=== PATIENT | male | born 1985 | race Caucasian/White ===

== ENCOUNTER 2020-10-04 10:59 | Inpatient (IN) | payer SELFPAY ==
[~2020-10-04] VITALS: Ht 177.8 cm; Wt 85.6 kg
[2020-10-04 11:51] LABS: BASOPHILS ABSOLUTE AUTO 0.06 K/mm3 (0.00-0.23); BASOPHILS PERCENT AUTO 0 % (0-2); EOSINOPHILS PERCENT AUTO 0 % (0-6); Hematocrit 44.3 % (37.0-53.0); Hemoglobin 15.3 g/dL (13.5-17.5); IMMATURE GRAN ABSOLUTE AUTO 0.22 K/mm3 (0.00-0.10); IMMATURE GRAN PERCENT AUTO 1 % (0-1); LYMPHOCYTES ABSOLUTE AUTO 0.95 K/mm3 (0.84-5.20); LYMPHOCYTES PERCENT AUTO 4 % (21-46); MONOCYTES ABSOLUTE AUTO 2.98 K/mm3 (0.16-1.47); MONOCYTES PERCENT AUTO 12 % (4-13); Mean Corpuscular HGB 30.7 pg (26.0-34.0); Mean Corpuscular HGB Conc 34.5 g/dL (31.5-36.5); Mean Corpuscular Volume 89 fL (80-100); Mean Platelet Volume 10.6 fL (9.1-12.4); NEUTROPHILS ABSOLUTE AUTO 20.99 K/mm3 (1.96-9.15); NEUTROPHILS PERCENT AUTO 83 % (41-73); Platelet Count 422 K/mm3 (150-400); RDW Coefficient Variation 12.8 % (11.7-14.2); RDW Standard Deviation 41.8 fL (35.1-46.3); Red Blood Cell Count 4.98 M/mm3 (4.30-5.90)
[2020-10-04 12:12] LABS: Alanine Aminotransfer (ALT/SGP 40 U/L (12-78); Albumin, Blood 2.8 g/dL (3.4-5.0); Albumin/Globulin Ratio 0.5 (0.8-1.8); Alk Phos 133 U/L (50-136); Anion Gap 8 mmol/L (6-16); Aspartate Aminotrans (AST/SGOT 13 U/L (12-37); Bilirubin, Total 1.1 mg/dL (0.1-1.0); Blood Urea Nitrogen 13 mg/dL (8-24); Bun/Creatinine Ratio 10.1 (12.0-20.0); CO2, Blood 21 mmol/L (21-32); Calcium, Blood 8.9 mg/dL (8.5-10.1); Chloride, Blood 104 mmol/L (98-108); Creatinine, Blood 1.29 mg/dL (0.60-1.20); Globulin, Blood 5.1 g/dL (2.2-4.0); Glomerular Filtration Rate >60 (60-); Glucose, Blood 116 mg/dL (70-99); Sodium, Blood 133 mmol/L (136-145); Total Protein, Blood 7.9 g/dL (6.4-8.2)
[2020-10-04 12:15] LABS: Source, Urine Clean Catch
[2020-10-04 12:25] LABS: Appearance, Urine Clear (Clear); Blood, Urine 5+ (Neg); Color, Urine Amber (P-Yellow); Glucose Qualitative, Urine Neg (Neg); Ketones, Urine 3+ (Neg); Leukocyte Esterase, Urine 1+ (Neg); Nitrite, Urine Pos (Neg); Protein, Urine 3+ (Neg); Specific Gravity, Urine 1.025 (1.003-1.022); Urobilinogen, Urine 2+ (Normal)
[2020-10-04 12:43] LABS: U Amphetamine Screen Not Detected; U Barbituate Screen Not Detected; U Benzodiazapine Screen Not Detected; U Buprenorphine Screen Not Detected; U Cannabinoids Screen Not Detected; U Cocaine Screen Not Detected; U Methadone Screen Not Detected; U Methamphetamine Screen Not Detected; U Opiates Screen Not Detected; U Oxycodone Screen Not Detected; U Phencyclidine Screen Not Detected; U Propoxyphene Screen Not Detected
[2020-10-04 12:44] LABS: Bilirubin, Urine 2+ (Neg)
[2020-10-04 12:46] LABS: Bacteria Mod /hpf; Mucus Mod (0-Heavy); Squamous Epithelial Cells Rare /hpf (Few)
[2020-10-04 13:10] LABS: SARS-Cov-2 (COVID-19) PCR, MMC NEGATIVE (NEGATIVE)
--- NOTE | 2020-10-04 19:47 | NUR ---
PT ADMITTED TO ROOM 357 AT 1645- STRETCHER TO BED, PT AMBULATES WITHOUT DIFFICULTY. IVF INFUSING AND ABX COMPLETING FROM ED. SATS 95% ROOM AIR, RESP SHALLOW, EVEN UNLABORED. C/O PAIN LL RIBS WITH DEEP INSP. PLACED TELE, SR 92. DR ZELAYA AT BEDSIDE ASSESSING AND GOING OVER PLAN FOR US GUIDED THOROCENTESIS. PT STATES UNDERSTANDING. HELD LOVENOX FOR PROCEDURE. PT ORIENTED TO ROOM SETUP AND SAFETY AND CALL LIGHT.
--- NOTE | 2020-10-04 19:50 | NUR ---
SUMM- PT TOLERATED GENERAL DINNER. VERY SLEEPY FROM LACK OF REST RELATED TO BREATHING DIFFICULTY AND PAIN WITH DEEP INSP. SATS 95% ROOM AIR, LUNGS DIM IN BASES. IVF INFUSING. PT ABLE TO AMBULATE TO BATHROOM INDEPENDANT STEADY ON FEET. HOB 75 DEGREES, PILLOWS UNDER ARMS, NOW ATTEMPTING REST. MEDICATED WITH TORADOL FOR COMFORT- REPORT TO ERIC LARA RN.
[2020-10-05 04:55] LABS: Hematocrit 40.7 % (37.0-53.0); Hemoglobin 13.9 g/dL (13.5-17.5); Mean Corpuscular HGB 30.6 pg (26.0-34.0); Mean Corpuscular HGB Conc 34.2 g/dL (31.5-36.5); Mean Corpuscular Volume 90 fL (80-100); Mean Platelet Volume 10.7 fL (9.1-12.4); Platelet Count 402 K/mm3 (150-400); RDW Coefficient Variation 13.1 % (11.7-14.2); RDW Standard Deviation 43.2 fL (35.1-46.3); Red Blood Cell Count 4.54 M/mm3 (4.30-5.90)
[2020-10-05 05:10] LABS: International Normalized Ratio 1.11; Prothrombin Time Results 11.9 Sec (9.7-11.5)
[2020-10-05 05:19] LABS: Bun/Creatinine Ratio 10.8 (12.0-20.0); Calcium, Blood 8.5 mg/dL (8.5-10.1); Creatinine, Blood 1.39 mg/dL (0.60-1.20); Potassium, Blood 3.9 mmol/L (3.5-5.5)
--- NOTE | 2020-10-05 06:08 | NUR ---
SHIFT SUMMARY PT HAS BEEN ABLE TO GET SOME REST THIS SHIFT AND REPORTS THAT HE HAS GOTTEN MORE REST TONIGHT THEN HE HAS HAD IN A WHILE. PT CONTINUES TO BE ON RA AND MAINTAINING SATS IN THE 90'S. LUNGS ARE DIMINISHED T/O, LEFT LOWER MORE SO DIMINISHED. PT RECEIVED SCHEDULED ANTIBIOTICS T/O SHIFT, IV VANCO AND ZOSYN. LOW GRADE FEVER THIS SHIFT. PT HAS PRODUCTIVE HARSH HACKING COUGH. PT MEDICATED FOR COUGH AND PLEURITC PAIN. PT ONLY ABLE TO SLEEP WITH HOB ELEVATED AND STILL STRUGGLING TO TAKE DEEP BREATHS D/T PAIN. PLAN IS FOR THORANCENTESIS TODAY AND POSSIBLE CHEST TUBE PLACEMENT, PT HAS BEEN NPO SINCE MIDNIGHT. TWO IV' ARE IN PLACE. PT INDEPENDENT IN THE ROOM. WBC DOWN THIS AM. PT AND INR LABS HAVE BEEN DRAWN FOR UPCOMING PROCEDURE. NO ACUTE CHANGES TO REPORT OVERNIGHT. BED IN LOWEST POSITION, CALL LIGHT WITHIN REACH.
--- NOTE | 2020-10-05 11:22 | NUR ---
Upon receiving an admit referral for spiritual care, I visit patient. Patient tells me about the struggle he has been having with his lungs and what the plan is going forward. He voices his concerns if things don't turn around. He tells me about his solid support system and his belief in God that strengthen him. I normalize patient's experience and provide anxiety containment, therapeutic listening and prayer. Patient responds well and shows signs of reduced stress. I will continue to remain available to patient and family.
[2020-10-05 15:38] LABS: Vancomycin, Trough 24.8 ug/mL (5.0-10.0)
--- NOTE | 2020-10-05 18:43 | NUR ---
SHIFT SUMMARY: NO ACUTE EVENTS TO REPORT THIS SHIFT. PT A&O; CALM AND COOPERATIVE WITH CARE; INDEPENDENT IN ROOM. MEDICATED FOR PLEURITIC PAIN PER EMAR c GOOD EFFECT. US GUIDED THORACENTESIS PLANNED FOR THIS SHIFT-CANCELLED R/T NO IDENTIFIABLE COLLECTION OF FLUID TO ASPIRATE. IV ABX CONTINUING. WCTM.
--- NOTE | 2020-10-06 04:22 | NUR ---
SHIFT SUMMARY ADMITTED FOR NECROTYZING LLL PNEUMONIA. FULL CODE. IV ANTIBIOTICS ARE SCHEDULED. CHEST XRAY AND CT SCAN ARE PLANNED. TELEMETRY: NSR @ 75 BPM. SPUTUM SAMPLE NEEDED. THORACENTESIS CANCELLED THERE WERE NO APPROPRIATE SITES TO DRAIN. DR BARTHOLOMEW IS CONSULT. LOW GRADE FEVERS NOTED. HE IS A&O X4, INDEPENDENT. AWAITING MORNING LABS, ELEVATED WBC COUNTS HAVE BEEN DOWNTRENDING.
[2020-10-06 05:11] LABS: BASOPHILS ABSOLUTE AUTO 0.08 K/mm3 (0.00-0.23); BASOPHILS PERCENT AUTO 1 % (0-2); EOSINOPHILS ABSOLUTE AUTO 0.06 K/mm3 (0.00-0.68); EOSINOPHILS PERCENT AUTO 0 % (0-6); Hematocrit 39.5 % (37.0-53.0); Hemoglobin 13.2 g/dL (13.5-17.5); IMMATURE GRAN ABSOLUTE AUTO 0.12 K/mm3 (0.00-0.10); IMMATURE GRAN PERCENT AUTO 1 % (0-1); LYMPHOCYTES ABSOLUTE AUTO 1.37 K/mm3 (0.84-5.20); LYMPHOCYTES PERCENT AUTO 8 % (21-46); MONOCYTES ABSOLUTE AUTO 1.74 K/mm3 (0.16-1.47); MONOCYTES PERCENT AUTO 11 % (4-13); Mean Corpuscular HGB Conc 33.4 g/dL (31.5-36.5); Mean Corpuscular Volume 90 fL (80-100); Mean Platelet Volume 10.7 fL (9.1-12.4); NEUTROPHILS ABSOLUTE AUTO 13.19 K/mm3 (1.96-9.15); NEUTROPHILS PERCENT AUTO 80 % (41-73); Platelet Count 455 K/mm3 (150-400); RDW Coefficient Variation 13.4 % (11.7-14.2); RDW Standard Deviation 44.3 fL (35.1-46.3); White Blood Cell Count 16.56 K/mm3 (4.00-11.30)
[2020-10-06 05:38] LABS: Albumin, Blood 2.2 g/dL (3.4-5.0); Anion Gap 9 mmol/L (6-16); Blood Urea Nitrogen 16 mg/dL (8-24); Bun/Creatinine Ratio 7.4 (12.0-20.0); CO2, Blood 24 mmol/L (21-32); Calcium, Blood 8.4 mg/dL (8.5-10.1); Chloride, Blood 108 mmol/L (98-108); Creatinine, Blood 2.15 mg/dL (0.60-1.20); Glomerular Filtration Rate 35 (60-); Glucose, Blood 109 mg/dL (70-99); Phosphorus, Blood 3.1 mg/dL (2.5-4.9); Potassium, Blood 3.7 mmol/L (3.5-5.5); Sodium, Blood 141 mmol/L (136-145)
[2020-10-06 07:15] LABS: HIV SCREEN 4TH GENERATION WRFX Non Reactive (Non Reactive)
[2020-10-06 11:55] LABS: Automated BF RBC Count 0.004 M/mm3 (0-0); Automated BF WBC Count 1.527 K/mm3 (0-999); Body Fluid WBC Count 1527 /mm3 (0-999); RBC Count, Body Fluid 4000 /mm3 (0-0)
[2020-10-06 12:21] LABS: Glucose, Body Fluid 22 mg/dL; Lactate Dehydrogenase, Body Fl 1086 U/L; Protein, Body Fluid 5.2 g/dL
[2020-10-06 12:44] LABS: Total Cell Count, Body Fluid 100
[2020-10-06 12:45] LABS: Appearance, Body Fluid Cloudy (Clear); Color, Body Fluid Yellow (None-Yellow)
[2020-10-06 12:53] LABS: pH, Body Fluid 7.3
--- NOTE | 2020-10-06 19:20 | NUR ---
ASSUMED CARE RECEIVED REPORT FROM ANT CORNELIUS. PT RESTING, IN NAD. NO ACUTE NEEDS ASSESSED AT THIS TIME. CALL LIGHT, POSSESSIONS IN REACH.
--- NOTE | 2020-10-06 19:27 | NUR ---
SHIFT SUMMARY: PT A&O; CALM AND COOPERATIVE WITH CARE; INDEPENDENT IN ROOM. LEFT LUNG PNA; FLUID COLLECTION; DRAIN PLACED THIS SHIFT; PT TOLERATED WELL; DRAINING YELLOW STRINGY FLUID. FLUIDS & IV ABX CONTINUING. REPORT GIVEN TO ONCOMING RN.
[2020-10-07 05:08] LABS: BASOPHILS ABSOLUTE AUTO 0.11 K/mm3 (0.00-0.23); BASOPHILS PERCENT AUTO 1 % (0-2); EOSINOPHILS ABSOLUTE AUTO 0.07 K/mm3 (0.00-0.68); EOSINOPHILS PERCENT AUTO 1 % (0-6); Hematocrit 36.7 % (37.0-53.0); Hemoglobin 12.6 g/dL (13.5-17.5); IMMATURE GRAN PERCENT AUTO 1 % (0-1); LYMPHOCYTES ABSOLUTE AUTO 1.17 K/mm3 (0.84-5.20); LYMPHOCYTES PERCENT AUTO 8 % (21-46); MONOCYTES ABSOLUTE AUTO 1.57 K/mm3 (0.16-1.47); MONOCYTES PERCENT AUTO 11 % (4-13); Mean Corpuscular HGB 30.3 pg (26.0-34.0); Mean Corpuscular HGB Conc 34.3 g/dL (31.5-36.5); Mean Corpuscular Volume 88 fL (80-100); Mean Platelet Volume 10.6 fL (9.1-12.4); NEUTROPHILS ABSOLUTE AUTO 11.43 K/mm3 (1.96-9.15); NEUTROPHILS PERCENT AUTO 79 % (41-73); Platelet Count 481 K/mm3 (150-400); RDW Coefficient Variation 13.5 % (11.7-14.2); RDW Standard Deviation 43.9 fL (35.1-46.3); Red Blood Cell Count 4.16 M/mm3 (4.30-5.90); White Blood Cell Count 14.45 K/mm3 (4.00-11.30)
[2020-10-07 05:23] LABS: Anion Gap 8 mmol/L (6-16); Blood Urea Nitrogen 12 mg/dL (8-24); Bun/Creatinine Ratio 5.8 (12.0-20.0); CO2, Blood 23 mmol/L (21-32); Calcium, Blood 8.4 mg/dL (8.5-10.1); Chloride, Blood 108 mmol/L (98-108); Creatinine, Blood 2.08 mg/dL (0.60-1.20); Glomerular Filtration Rate 36 (60-); Glucose, Blood 99 mg/dL (70-99); Phosphorus, Blood 3.1 mg/dL (2.5-4.9); Potassium, Blood 3.7 mmol/L (3.5-5.5); Sodium, Blood 139 mmol/L (136-145)
--- NOTE | 2020-10-07 06:51 | NUR ---
MANAGER QUALITY SUMMARY PT RESTING IN BED, IN NAD. HAS BEEN SLEEPING ON AND OFF T/O NIGHT. INDEPENDENT IN ROOM. VS REVIEWED, WNL. PLEUREX DRAINING TABBY-YELLOW MUCUSY DRAINAGE, TUBING FREE OF KINKS; PT REPORTS MINIMAL DISCOMFORT TO SITE. NO ACUTE CHANGES TO REPORT OVERNIGHT. DENIES NEEDS AT THIS TIME. IVF AND IV ABX INFUSING ORDERED. WILL REPORT OFF TO ONCOMING RN.
--- NOTE | 2020-10-07 14:06 | NUR ---
Patient is sitting up inbed and alert. Patient tells me about his improvement (breathing deeper, increased strength and energy and much more productive cough). He also talks about his emotional status brightening and feeling like he is over the worst of it. He continue to share about his solid support system and how grateful he is for them. I provide therapeutic listening and companionship. Patient responds well and shows signs of an elevated mood.
--- NOTE | 2020-10-07 17:15 | NUR ---
SHIFT SUMMARY PT AxOx4. PLEASANT AND COOPERATIVE WITH CARE. PT REPORTED PLEURITIC PAIN AND COUGHING THIS SHIFT. MEDICATED PER EMAR WITH REPORTED RELIEF. PT INDEPENDENT IN THE ROOM. L SIDE PLEURX TUBE DRAINING SEROUS FLUID. CURRENT PLAN IS TO CONTINUE RECEIVING IV ABX AND GET CT OF CHEST IN THE AM. IV FLUIDS DC'D PER ORDER. PT CURRENTLY RESING IN BED WITH CALL LIGHT IN REACH. VITALS REVIEWED. PT DENIES ANY NEEDS AT THIS TIME.
--- NOTE | 2020-10-08 07:30 | NUR ---
SHIFT SUMMARY PT IS A 34 Y/O MALE, ADMITTED FOR NECROTIZING PNA. HE IS A&O X 4, INDEPENDENT IN THE ROOM. PT REPORTED LOWER BACK PAIN, WHICH HE WAS MEDICATED FOR WITH TYLENOL, AND A COUGH, MEDICATED WITH TESSALON PERLES. NO C/O NAUSEA OR ACUTE SOB. PLEUREX DRAIN IN PLACE, DRAINING A SMALL AMOUNT OF YELLOW AND PINK DRAINAGE. VITAL SIGNS STABLE. TELE SHOWED NSR IN THE 80S. NO ACUTE CHANGES IN PT CONDITION NOTED DURING THE NIGHT. REPORT GIVEN TO ONCOMING RN.
[2020-10-08 08:28] LABS: Hematocrit 35.4 % (37.0-53.0); Hemoglobin 12.1 g/dL (13.5-17.5); Mean Corpuscular HGB 30.3 pg (26.0-34.0); Mean Corpuscular HGB Conc 34.2 g/dL (31.5-36.5); Mean Corpuscular Volume 89 fL (80-100); Mean Platelet Volume 10.5 fL (9.1-12.4); Platelet Count 468 K/mm3 (150-400); RDW Coefficient Variation 13.6 % (11.7-14.2); RDW Standard Deviation 44.7 fL (35.1-46.3); White Blood Cell Count 16.06 K/mm3 (4.00-11.30)
[2020-10-08 08:42] LABS: Albumin, Blood 1.9 g/dL (3.4-5.0); Anion Gap 4 mmol/L (6-16); Blood Urea Nitrogen 9 mg/dL (8-24); Bun/Creatinine Ratio 4.7 (12.0-20.0); CO2, Blood 27 mmol/L (21-32); Calcium, Blood 8.1 mg/dL (8.5-10.1); Chloride, Blood 110 mmol/L (98-108); Creatinine, Blood 1.93 mg/dL (0.60-1.20); Glomerular Filtration Rate 40 (60-); Glucose, Blood 104 mg/dL (70-99); Phosphorus, Blood 2.2 mg/dL (2.5-4.9); Potassium, Blood 3.5 mmol/L (3.5-5.5); Sodium, Blood 141 mmol/L (136-145)
--- NOTE | 2020-10-08 09:10 | NUR ---
PT PLEASANT COOP A/O TALKATIVE. STATES PAIN IN BACK. MED PER EMAR. PIGTAIL CATHETER DRAIN IN LEFT SIDE CHEST WALL. DRAINING SCANT YELLOW FLUID. OP SITE CDI. COVERED WITH TRANSPARENT DRESSING. NO REDNESS NOTED. LUNGS CLER EXCEPT LOW RT IS LITE CRACKLES. RESP EASY, UNLABORED. ON R/A. BT X4 LAST BM YEST PER PT. VIODS INDEPENDANT TO BATHROOM. BED IN LOW POSITION, CALL LITE IN REACH, CALLS APPROP
[2020-10-08 11:14] LABS: Total Protein, Blood 6.6 g/dL (6.4-8.2)
--- NOTE | 2020-10-08 13:00 | NUR ---
Patient tells me that he is improving and that he has one more procedure today and following that there will be discussion about his transition home. Patient is staying positive and is missing his family [place]. I provide therapeutic listening and companionship. Patient responds well and shows signs of an elevated mood.
[2020-10-08 15:45] LABS: Appearance, Body Fluid Clear (Clear); Color, Body Fluid Yellow (None-Yellow)
[2020-10-08 15:50] LABS: Automated BF WBC Count 0.301 K/mm3 (0-999); Body Fluid WBC Count 301 /mm3 (0-999)
[2020-10-08 16:10] LABS: Glucose, Body Fluid 58 mg/dL; Protein, Body Fluid 4.8 g/dL
[2020-10-08 16:32] LABS: Lactate Dehydrogenase, Body Fl 1204 U/L
[2020-10-08 16:34] LABS: RBC Count, Body Fluid 996 /mm3 (0-0)
[2020-10-08 16:40] LABS: Total Cell Count, Body Fluid 100
[2020-10-08 17:48] LABS: pH, Body Fluid 7.3
--- NOTE | 2020-10-08 18:46 | NUR ---
PT QUITE PLEASANT TODAY. PAIN MANAGED WITH [facility]AIL MEDS. DR PETERSEN REMOVED CHEST PLEUREX DRAIN THIS STEVE. DRESSING IN PLACE BY DR PETERSEN. PT HAD CAMERON PERFORMED THIS AFT. PT STATES ABOUT 100 CC REMOVED. BANDAIDE IN PLACE ON L BACK OF CHEST. CDI. DR PETERSEN STATES EXPECTS DISCHARGE TOMORROW. NO NEW CONCERNS NOTED. BED IN LOW POSITION CALL LITE IN REACH, CALLS APPROP.
[2020-10-09 04:25] LABS: Hematocrit 35.2 % (37.0-53.0); Mean Corpuscular HGB 29.9 pg (26.0-34.0); Mean Corpuscular HGB Conc 34.1 g/dL (31.5-36.5); Mean Corpuscular Volume 88 fL (80-100); Mean Platelet Volume 10.4 fL (9.1-12.4); Platelet Count 478 K/mm3 (150-400); RDW Coefficient Variation 13.7 % (11.7-14.2); RDW Standard Deviation 44.2 fL (35.1-46.3); Red Blood Cell Count 4.02 M/mm3 (4.30-5.90); White Blood Cell Count 16.12 K/mm3 (4.00-11.30)
[2020-10-09 04:43] LABS: Albumin, Blood 1.8 g/dL (3.4-5.0); Anion Gap 7 mmol/L (6-16); Blood Urea Nitrogen 10 mg/dL (8-24); CO2, Blood 27 mmol/L (21-32); Chloride, Blood 106 mmol/L (98-108); Creatinine, Blood 2.02 mg/dL (0.60-1.20); Glomerular Filtration Rate 38 (60-); Glucose, Blood 126 mg/dL (70-99); Phosphorus, Blood 2.4 mg/dL (2.5-4.9); Potassium, Blood 3.3 mmol/L (3.5-5.5); Sodium, Blood 140 mmol/L (136-145)
--- NOTE | 2020-10-09 06:28 | NUR ---
SHIFT SUMMARY PT IS A 34 Y/O MALE, ADMITTED FOR NECROTIZING PNA. HE IS A&O X 4, INDEPENDENT IN THE ROOM. HE WAS MEDICATED FOR LOWER BACK AND RIB PAIN WITH PRN TYLENOL. PT ALSO HAD AN EPISODE OF GAGGING AND SMALL AMOUNT OF EMESIS AFTER A COUGHING FIT. HE DENIED ANY NAUSEA AT THAT TIME. PT WAS MEDICATED WITH TESSALON PERLES FOR COUGH AT HS. VITAL SIGNS STABLE. NO ACUTE CHANGES IN PT CONDITION NOTED DURING THE NIGHT. WILL CONTINUE TO MONITOR AND TREAT PER EMAR UNTIL HAND OFF TO DAY SHIFT RN.
[2020-10-09] MEDS ORDERED: AMOCLA875 PO (11:01)
[2020-10-09] MEDS ORDERED: GUAI600T33 PO (11:01)
[2020-10-09] MEDS ORDERED: ACET325 PO (11:01)
[2020-10-09] MEDS ORDERED: Guaifenesin Wit10 ML PO (11:02)
--- NOTE | 2020-10-09 12:44 | NUR ---
DISCHARGE REVIEWD WITH PT . MOTHER IN ROOM. PT STATES OKAY FOR HER TO BE IN ROOM. PT VERBALIZED UNDERSTANDING MEDS AND INST. AGREES TO CALL DR FOR APPT ON MONDAY, HANDED PT THE HARD SCRIPT RX. IV PULLED INTACT. NO TELE. PT WALKED OUT TO DOOR WITH MOTHER AND [employer]DS MAINTENANCE WORKER KENDAL.
== END 2020-10-09 12:19 | disposition home or self-care (01) | DRG 178 ==
LOC: ER 10:59 → MEDS 14:30 → ERHOLD 14:30 → MEDS 16:43 → ENPENDDIS 10-09 10:12 → MEDS 10-09 12:19
PROVIDERS: Emergency Medicine; Internal Medicine Critical Care Medicine; Pharmacist; Physician Assistant; ADMIT Internal Medicine
PROC: 0W9B3ZZ Drainage of Left Pleural Cavity, Percutaneous Approach (ICD-10-PCS; 2020-10-05)
PROC: 0W9B30Z Drainage of Left Pleural Cavity with Drainage Device, Percutaneous Approach (ICD-10-PCS; 2020-10-06)
PROC: 0W9B3ZZ Drainage of Left Pleural Cavity, Percutaneous Approach (ICD-10-PCS; principal; 2020-10-08)
DX: J85.0 Gangrene and necrosis of lung (principal); J91.8 Pleural effusion in other conditions classified elsewhere; N39.0 Urinary tract infection, site not specified; E87.1 Hypo-osmolality and hyponatremia; N17.9 Acute kidney failure, unspecified; Z20.822 Contact with and (suspected) exposure to COVID-19; T36.0X5A Adverse effect of penicillins, initial encounter; T36.8X5A Adverse effect of other systemic antibiotics, initial encounter; E83.39 Other disorders of phosphorus metabolism
CPT/HCPCS: 32555; 36415; 71045; 71046; 71250; 71260; 75989; 76604; 80048; 80053; 80069; 80202; 81001; 82945; 83605; 83615; 83986; 84155; 84157; 85025; 85027; 85610; 85651; 85730; 86141; 87040; 87070; 87077; 87086; 87186; 87205; 87389; 88108; 88305; 89051; 94640; 94760; 96365; 96366; 99285-25; A9270; J0295; J0456; J0696; J1650; J1885; J2543; J3370; J7030; J7050; J7120; Q9967; U0004

== ENCOUNTER 2020-10-15 12:41 | Day surgery (SDC) | payer SELFPAY ==
[~2020-10-15 12:41] MED LIST: ACET325 PO; AMOCLA875 PO; GUAI600T33 PO; Guaifenesin Wit10 ML PO
[2020-10-15 16:04] LABS: Automated BF RBC Count 0.002 M/mm3 (0-0); Automated BF WBC Count 0.235 K/mm3 (0-999); Body Fluid WBC Count 235 /mm3 (0-999)
[2020-10-15 16:39] LABS: Glucose, Body Fluid 66 mg/dL; Lactate Dehydrogenase, Body Fl 1152 U/L; Protein, Body Fluid 5.3 g/dL
[2020-10-15 16:46] LABS: Color, Body Fluid Yellow (None-Yellow); Total Cell Count, Body Fluid 100
[2020-10-15 16:47] LABS: Appearance, Body Fluid Clear (Clear)
== END 2020-10-15 22:43 | disposition home or self-care (01) ==
LOC: US 12:41
PROVIDERS: Internal Medicine Critical Care Medicine
DX: J90 Pleural effusion, not elsewhere classified (principal)
CPT/HCPCS: 71046; 75989; 76604; 82945; 83615; 84157; 87070; 87075; 87205; 89051

== ENCOUNTER 2021-04-23 21:23 | Observation (INO) | payer SELFPAY ==
[~2021-04-23] VITALS: Ht 177.8 cm; Wt 81.9 kg
[2021-04-23 22:37] LABS: BASOPHILS ABSOLUTE AUTO 0.05 K/mm3 (0.00-0.23); BASOPHILS PERCENT AUTO 0 % (0-2); EOSINOPHILS ABSOLUTE AUTO 0.04 K/mm3 (0.00-0.68); EOSINOPHILS PERCENT AUTO 0 % (0-6); Hematocrit 50.4 % (37.0-53.0); Hemoglobin 17.4 g/dL (13.5-17.5); IMMATURE GRAN ABSOLUTE AUTO 0.06 K/mm3 (0.00-0.10); IMMATURE GRAN PERCENT AUTO 0 % (0-1); LYMPHOCYTES ABSOLUTE AUTO 1.44 K/mm3 (0.84-5.20); LYMPHOCYTES PERCENT AUTO 9 % (21-46); MONOCYTES ABSOLUTE AUTO 1.76 K/mm3 (0.16-1.47); MONOCYTES PERCENT AUTO 12 % (4-13); Mean Corpuscular HGB 30.7 pg (26.0-34.0); Mean Corpuscular HGB Conc 34.5 g/dL (31.5-36.5); Mean Corpuscular Volume 89 fL (80-100); Mean Platelet Volume 11.4 fL (9.1-12.4); NEUTROPHILS ABSOLUTE AUTO 11.92 K/mm3 (1.96-9.15); NEUTROPHILS PERCENT AUTO 78 % (41-73); Platelet Count 293 K/mm3 (150-400); RDW Coefficient Variation 12.4 % (11.7-14.2); Red Blood Cell Count 5.67 M/mm3 (4.30-5.90); White Blood Cell Count 15.27 K/mm3 (4.00-11.30)
[2021-04-23 22:56] LABS: Alanine Aminotransfer (ALT/SGP 24 U/L (12-78); Alk Phos 97 U/L (50-136); Anion Gap 6 mmol/L (6-16); Aspartate Aminotrans (AST/SGOT 11 U/L (12-37); Bilirubin, Total 1.4 mg/dL (0.1-1.0); Blood Urea Nitrogen 10 mg/dL (8-24); Bun/Creatinine Ratio 8.7 (12.0-20.0); CO2, Blood 26 mmol/L (21-32); Calcium, Blood 9.5 mg/dL (8.5-10.1); Chloride, Blood 106 mmol/L (98-108); Creatinine, Blood 1.15 mg/dL (0.60-1.20); Globulin, Blood 4.1 g/dL (2.2-4.0); Glomerular Filtration Rate >60 (60-); Glucose, Blood 119 mg/dL (70-99); Potassium, Blood 3.9 mmol/L (3.5-5.5); Sodium, Blood 138 mmol/L (136-145); Total Protein, Blood 8.1 g/dL (6.4-8.2)
--- NOTE | 2021-04-24 04:54 | NUR ---
LATE ENTRY: PT ARRIVED TO SURGICAL FLOOR AT 0230 FROM ER. PT AMBULATED WITH SBA FOR SAFETY FROM ER [place] TO SURGICAL BED. RATING PAIN 4/10 IN RLQ. PT EXPERIENCES PAIN WITH POSITION CHANGES, AND IS GUARDING HIS STOMACH/GRIMACING WHILE AMBULATING/REPOSITIONING HIMSELF IN BED. ROOM AIR. 20G IV IN LEFT WRIST. SKIN IS WARM, DRY, INTACT. REPORTS NAUSEA. PT IS NPO, ADMITTED FOR OBSERVATION AND POSSIBLE SURGICAL INTERVENTION. DX: APPENDICITIS. A&0 X4. LUNGS CLEAR BILAT. LAST BM 04/23/21 AT 20:00, SOFT BROWN STOOL PT REPORTS. PERIPHERAL PULSES STRONG BILAT. FULL CODE.
--- NOTE | 2021-04-24 04:59 | NUR ---
SHIFT SUMMARY TOSIN REQUESTED TIME FOR UNINTERRUPTED REST. ORIENTED TO CALL LIGHT. ADVISED TO USE CALL LIGHT FOR ASSISTANCE TO BSC IF NEEDED, TO PREVENT FALLS. URINAL AT BEDSIDE. WILL CONTINUE TO MONITOR PAIN AND MEDICATE PER EMAR. NURSE IS SITTING OUTSIDE PT'S ROOM FOR CLOSE OBSERVATION.
--- NOTE | 2021-04-24 12:06 | NUR ---
04/24/21 1206 Obey Salinas PT ON SCHEDULED UNASYN 3G 0722 2.5.22. PRIOR TO INTUBATION, WHILE LOOKING INTO THE AIRWAY ANESTHESIA NOTED THAT, "A TOOTH FELT LOOSE." INTUBATED WITHOUT ISSUE. ANESTHESIA WILL FOLLOW UP WITH PATIENT.
--- NOTE | 2021-04-24 12:57 | NUR ---
PT ARRIVED TO THE ROOM FROM PACU AT APPROXIMATELY 1245. PT IS ALERT AND ORIENTED. HE REPORTS PAIN IS TOLERABLE BUT IS TENDER WITH ACTIVITY. PT DENIES NAUSEA. PT PROVIDED WITH LUNCH AND EDUCATED TO EAT SMALL AMOUNTS AND TO EAT SLOWLY TO PREVENT NAUSEA. WILL CONTINUE TO MONITOR.
[2021-04-24] MEDS ORDERED: AMOCLA875 PO (15:14)
[2021-04-24] MEDS ORDERED: OXAYDO5 M1 PO (15:15)
--- NOTE | 2021-04-24 18:59 | NUR ---
SHIFT SUMMARY PT IS POD#[address] [facility] [address] DR[address] PHILIP. PAIN HAS BEEN MANAGED WITH TYLENOL AND TORADOL POST OP. HE HAS BEEN ABLE TO TOLERATE PO, AMBULATE, VOID AND PASS FLATUS POST OP. INCISIONS REMAIN C/D/I WITH STERI STRIPS IN PLACE. PT PLANS TO DISCHARGE HOME THIS EVENING, HE IS WAITING FOR HIS FATHER TO ARRIVE TO TAKE HIM HOME. PT WAS PROVIDED WITH WRITTEN AND VERBAL DISCHARGE INSTRUCTIONS, HE REPORTED UNDERSTANDING. AUGMENTING AND OXY SCRIPTS PROVIDED. PT EDUCATED THAT HIS PHARMACY WILL BE CLOSED THIS EVENING BY THE TIME HIS FATHER ARRIVES. PT VERBALIZED UNDERSTANDING AND REPORTS FEELING THAT HE CAN MANAGED PAIN WITH TYLENOL AND ADVIL. PT GIVEN EVENING ANTIBIOTIC AND EDUCATED TO GET ABX FROM PHARMACY EARLY IN THE MORNING, PT REPORTED UNDERSTANDING. VSS. WILL MONITOR UNTIL DISCHARGE, OR REPORT TO NOC RN.
== END 2021-04-24 19:19 | disposition home or self-care (01) ==
LOC: ER 21:23 → SURS 21:24 → ER 04-24 02:25 → SURS 04-24 03:33
PROVIDERS: Physician Assistant; ADMIT Surgery
PROC: 0DTJ4ZZ Resection of Appendix, Percutaneous Endoscopic Approach (ICD-10-PCS; principal; 2021-04-24 11:00)
DX: K35.891 Other acute appendicitis without perforation, with gangrene (principal)
CPT/HCPCS: 36415; 76857; 80053; 85025; 96374; 96375; 96376; 99285-25; A9270; J0295; J1100; J1170; J1885; J2405; J2704; J2765; J3010; J7050